=== PATIENT | female | born 1965 | race Caucasian/White ===

== ENCOUNTER 2018-11-01 18:46 | Emergency (ER) | payer MEDICAID ==
[~2018-11-01] VITALS: Ht 162.6 cm; Wt 81.4 kg
[2018-11-01 18:50] VITALS: Ht 162.6 cm; Wt 81.4 kg
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
[2018-11-01] MEDS ORDERED: ACETAMINOPHEN 325 MG TAB PO ONE (22:00)
[2018-11-01] MEDS ORDERED: ACET325T33 PO (23:31)
[2018-11-01] MEDS ORDERED: BACL10TA PO (23:31)
[2018-11-01] MEDS ORDERED: IBUP-1561 PO (23:31)
[2018-11-02 00:52] VITALS: BP 132/80; PULSE 77; RESP 22
== END 2018-11-02 00:53 | disposition home or self-care (01) ==
LOC: FTE 18:46
DX: S06.0X0A Concussion without loss of consciousness, initial encounter (principal); S20.211A Contusion of right front wall of thorax, initial encounter; S80.02XA Contusion of left knee, initial encounter; V43.62XA Car passenger injured in collision with other type car in traffic accident, initial encounter
CPT/HCPCS: 70450; 71046; 73130; 73562; 81025; Z7502; Z7610